=== PATIENT | male | born 1940 | race Caucasian/White ===

== ENCOUNTER 2022-03-22 00:18 | Emergency (ER) | payer MEDICARE, OTHER ==
--- NOTE | 2022-03-22 00:21 | ED Physician Documentation ---
PD HPI DYSPNEA - Stated complaint Stated Complaint: SOB; poss COVID - History obtained from History obtained from: Patient - History of Present Illness Timing - onset: Today (this afternoon) Timing - details: Gradual onset Pain level now: 0 Associated symptoms: Fever (subjective (felt like he had a fever, per patient, but he did not take his temperature).), Cough. No: Hemoptysis, Wheezing, Chest pain / discomfort, Palpitations, Diaphoresis, Bilateral edema, Unilateral edema Similar symptoms before: Has not had sx before Recently seen: Not recently seen - Additional information Additional information: c/o chest congestion, "scratchy throat" (per patient), cough productive of clear sputum. symptoms began this afternoon. Feels like has been having fevers but did not check his temperature at home. He is COVID vaccinated Review of Systems Constitutional: reports: Chills, Myalgias, Sweats Cardiac: denies: Chest pain / pressure, Pedal edema Respiratory: reports: Cough. denies: Dyspnea GI: reports: Reviewed and negative PD PAST MEDICAL HISTORY - Past Medical History Past Medical History: Yes Cardiovascular: Hypertension, High cholesterol - Past Surgical History Past Surgical History: No - Present Medications Home Medications: Ambulatory Orders Medication Instructions Recorded Confirmed Albuterol Sulf [Ventolin Hfa 1 - 2 puffs INH Q4HR PRN #1 inhaler 03/22/22 Inhaler] Albuterol Sulf [Ventolin Hfa 2 puffs ORAL PRN PRN 03/22/22 03/22/22 Inhaler] FLUoxetine [PROzac] 10 mg ORAL DAILY 03/22/22 03/22/22 Losartan [Cozaar] 50 mg ORAL DAILY 03/22/22 03/22/22 Simvastatin [Zocor] 10 mg ORAL DAILY 03/22/22 03/22/22 - Allergies Allergies/Adverse Reactions: Allergies Allergy/AdvReac Type Severity Reaction Status Date / Time No Known Drug Allergies Allergy Verified 03/22/22 00:44 - Living Situation Living Arrangement: reports: At home PD ED PE NORMAL - Vitals Vital signs reviewed: Yes - General General: Alert and oriented X 3, No acute distress, Well developed/nourished - HEENT HEENT: Moist mucous membranes, Pharynx benign - Neck Neck: Supple, no meningeal sign - Cardiac Cardiac: RRR, No murmur - Respiratory Respiratory: No respiratory distress, Other (scattered bilateral rhonchi in upper lung dong) - Abdomen Abdomen: Soft, Non tender - Back Back: No CVA TTP Results - Vitals Vitals: Vital Signs - 24 hr 03/22/22 03/22/22 03/22/22 00:30 01:03 02:17 Temperature 36.6 C 36.6 C Heart Rate 80 89 84 Respiratory 18 18 18 Rate Blood Pressure 165/95 H 138/82 H 133/76 H O2 Saturation 100 97 99 Oxygen O2 Source Room air - Labs Labs: Laboratory Tests 03/22/22 00:33 Nasal Adenovirus (PCR) NOT DETECTED Nasal B. parapertussis DNA (PCR) NOT DETECTED Nasal Coronavir 229E PCR NOT DETECTED Nasal Coronavir HKU1 PCR NOT DETECTED Nasal Coronavir NL63 PCR NOT DETECTED Nasal Coronavir OC43 PCR NOT DETECTED Nasal Enterovir/Rhinovir PCR NOT DETECTED Nasal Influenza B PCR NOT DETECTED Nasal Influenza A PCR NOT DETECTED Nasal Parainfluen 1 PCR NOT DETECTED Nasal Parainfluen 2 PCR NOT DETECTED Nasal Parainfluen 3 PCR NOT DETECTED Nasal Parainfluen 4 PCR NOT DETECTED Nasal RSV (PCR) NOT DETECTED Nasal B.pertussis DNA PCR NOT DETECTED Nasal C.pneumoniae (PCR) NOT DETECTED Ricardo Human Metapneumo PCR NOT DETECTED Nasal M.pneumoniae (PCR) NOT DETECTED Nasal SARS-CoV-2 (PCR) DETECTED A - Rads (name of study) chest xray Radiology: Prelim report reviewed, See rad report PD MEDICAL DECISION MAKING - ED course Complexity details: reviewed results, re-evaluated patient, considered differential, d/w patient ED course: Respiratory PCR panel is positive for COVID. He is well appearing / NAD, with upper 90s pulse ox on room air. No abnormalities on CXR. We discussed Paxlovid and he is interested in this treatment. I advised him of potential interaction with fluoxetine and signs/symptoms to watch for regarding this potential interaction. I strongly emphasized the interaction between Paxlovid and simvastatin, and that simvastatin is a CONTRINDICATION to Paxlovid. However, available data and the drug filling machine tender indicate that Paxlovid may be taken as long as the first dose is at least twelve hours after the most recent dose of simvastatin, and that the simvastatin is not taken during the five day course of Paxlovid. I reviewed this with the patient and he says he will stop the simvastatin for 6 days, taking the first dose of paxlovid at least 12 hours after the most recent dose of Simvastatin (and I advised him he can resume the simvastatin 24 hours after the last dose of Paxlovid) Departure - Departure Disposition: 01 Home, Self Care Clinical Impression: COVID-19 Condition: Good Instructions: ED Viral Syndrome Prescriptions: Albuterol Sulf [Ventolin Hfa Inhaler] 1 - 2 puffs INH Q4HR PRN #1 inhaler PRN Reason: Shortness Of Air/Wheezing Comments: You have tested POSITIVE for COVID-19. You are being provided anti-viral medication (Paxlovid, which actually utilizes two different anti-viral medications). Take these medications as per kit instructions. The total course of the medication is five days. These medications have been shown to help lower severity of COVID symptoms and shorten the duration of symptoms of COVID. YOU MUST STOP TAKING SIMVASTATIN WHILE TAKING PAXLOVID. These medications do not interact well. You can start the Paxlovid 12 hours after your most recent dose of the Simvastatin. You can resume taking the Simvastatin 24 hours after your last dose of Paxlovid. There is a potential for interaction between Paxlovid and Fluoxetine but it is low likelihood. If you experience symptoms such as nausea, vomiting, dizziness, vertigo, confusion, tremors, and unsteady gait, you should stop taking the paxlovid. Follow the CDC guidelines regarding COVID isolation. Using [employer], enter the following search words: "CDC covid isolation" Then click on the link that begins with: https://www.cdc.gov 2019-ncov your-health Discharge Date/Time: 03/22/22 02:17
[2022-03-22 01:37] LABS: CORONAVIRUS 229E-RESP PCR NOT DETECTED; CORONAVIRUS HKU1-RESP PCR NOT DETECTED; CORONAVIRUS NL63-RESP PCR NOT DETECTED; CORONAVIRUS OC43-RESP PCR NOT DETECTED
[2022-03-22 01:38] LABS: SARS-CoV-2 -RESP PCR PANEL DETECTED
[2022-03-22 01:39] LABS: B. PARAPERTUSSIS- RESP PCR PAN NOT DETECTED; B. PERTUSSIS- RESP PCR PANEL NOT DETECTED; C. PNEUMONIAE- RESP PCR PANEL NOT DETECTED; HUMAN METAPNEUMOVIRUS NOT DETECTED; INFLUENZA A- RESP PCR PANEL NOT DETECTED; INFLUENZA B - RESP PCR PANEL NOT DETECTED; M. PNEUMONIAE- RESP PCR PANEL NOT DETECTED; PARAINFLUENZA VIRUS 1 NOT DETECTED; PARAINFLUENZA VIRUS 2 NOT DETECTED; PARAINFLUENZA VIRUS 3 NOT DETECTED; PARAINFLUENZA VIRUS 4 NOT DETECTED; RHINOVIRUS/ENTEROVIRUS NOT DETECTED; RSV- RESP PCR PANEL NOT DETECTED
--- NOTE | 2022-03-22 02:04 | XRAY Report ---
PROCEDURE: Chest 1 View X-Ray INDICATIONS: cough, bilateral rhonchi TECHNIQUE: One view of the chest was acquired. COMPARISON: None. FINDINGS: Surgical changes and devices: None. Lungs and pleura: No pleural effusions or pneumothorax. Lungs are clear. Mediastinum: Mediastinal contours appear normal. Heart size is normal. Bones and chest wall: No suspicious bony lesions. Overlying soft tissues appear unremarkable. IMPRESSION: 1. No acute cardiopulmonary disease. Reviewed by: Leonel Layne MD on 03/22/2022 2:02 AM PDT Approved by: Leonel Layne MD on 03/22/2022 2:02 AM PDT Station ID: [id number]
[2022-03-22] MEDS ORDERED: NIRMATRELVIR/RITONAVIR PREPACK PO STA (02:09)
[2022-03-22 02:18] VITALS: BP 133/76
== END 2022-03-22 02:17 | disposition home or self-care (01) ==
LOC: ED 00:18
DX: U07.1 COVID-19 (principal)
CPT/HCPCS: 71045; 87633; 99282; 99283; J3490